=== PATIENT | female | born 1955 | race Caucasian/White ===

== ENCOUNTER 2017-05-22 09:38 | Inpatient (IN) | payer BC ==
--- NOTE | 2017-04-27 09:30 | History and Physical ---
History & Physical Date of Service Apr 27, 2017. History & Physical PROCEDURE: Right total knee replacement. HISTORY OF PRESENT ILLNESS: Patience is a mateusz 61-year-old female who presents for preoperative evaluation prior to a right knee replacement. She has been experiencing pain in this knee for several years now, which has gradually worsened. She describes the pain as aching, throbbing, which is aggravated by going up and down stairs, her normal daily activities including walking, standing. Her worst pain is a 9/10, at rest is a 2/10. She has taken oral anti-inflammatories including Celebrex and ibuprofen. She has also taken hydrocodone in the past for her pain. She has been treated with Synvisc series of injections x 2 without any relief. At this point in time, she has failed conservative measures and would like to proceed with a right knee replacement. She recently underwent left TKA and is doing well. PAST MEDICAL HISTORY: 1. Hypertension. 2. High cholesterol. 3. Osteoarthritis. ALLERGIES: CODEINE CAUSES VOMITING. SHE CAN NOT TAKE OXYCODONE BUT IS OK WITH NORCO. OXY MAKES HER VOMIT. CURRENT MEDICATIONS: 1. Lipitor 10 mg daily. 2. Valsartan 80mg daily. 2. Celebrex daily. 3. Aspirin 81 mg 2 tablets daily. PAST SURGICAL HISTORY: 1. Breast reduction. 2. Hernia repair. 3. Tonsillectomy. 4. Partial hysterectomy. 5. Left TKA 2014 FAMILY HISTORY: Noncontributory. SOCIAL HISTORY: The patient denies a history of smoking or tobacco use. She consumes 2-4 alcoholic beverages per week. REVIEW OF SYSTEMS: Otherwise negative. Please see HPI for pertinent positives. PHYSICAL EXAMINATION: GENERAL: Mateusz 61-year-old female in no acute distress, alert and oriented x 3. HEENT: Normocephalic, atraumatic. CARDIAC: Regular rate and rhythm. No murmurs or gallops appreciated. Resting pulse 78 beats per minute. LUNGS: Clear to auscultation without rales or wheeze bilaterally. ABDOMEN: Soft, nontender. Bowel sounds present. EXTREMITIES: Right lower extremity she is neurovascularly intact. Calf is soft and nontender. DP pulse +2. Good quad tone. Straight leg raise without lag. Overall has varus alignment. Positive crepitation with motion. Range of motion is 0/0/115. Her knee is ligamentously stable. Has diffuse tenderness to the knee, which is worse over the medial compartment. IMAGING: Reviewed of her right knee shows findings consistent with degenerative joint disease, including joint space narrowing and osteophyte formation. She has overall varus alignment. She has degenerative changes noted about the patellofemoral joint as well. IMPRESSION: 1. Right Knee DJD 2. Hypertension. 3. High cholesterol. PLAN: Further care discussed with the patient. At this point in time, has failed all conservative measures and would like to proceed with right knee replacement at [facility] [address]. Will be placed on aspirin 81 mg 1 tablet p.o. b.i.d. for 1 month postop. The patient otherwise has no other questions or concerns.
[2017-04-27 11:51] VITALS: BMI 31.0
[2017-04-27 11:59] LABS: BASO % 0.7 %; BASO ABS # 0.05 K/uL (0-0.2); COMPLETE YES; EOS % 4.5 %; HEMATOCRIT 43.4 % (37-47); IG% 0.3 %; LYMPH % 17.8 %; LYMPH ABS # 1.34 K/uL (1.2-3.4); MEAN CELL VOLUME 92.1 fL (80-100); MEAN CORPUSCULAR HEMOGLOBIN 30.4 pg (25-34); MEAN CORPUSCULAR HGB CONC 32.9 g/dl (32-36); MEAN PLATELET VOLUME 10.7 fL (7.4-10.4); MONO % 6.9 %; NEUT % 69.8 %; PLATELET COUNT 205 K/uL (130-400); RED BLOOD COUNT 4.71 M/uL (4.2-5.4); WHITE BLOOD COUNT 7.54 K/uL (4.8-10.8)
[2017-04-27 12:03] LABS: URINE APPEARANCE CLEAR (CLEAR); URINE BILIRUBIN NEG (NEG); URINE COLOR YELLOW; URINE NITRITE NEG (NEG); URINE PH 5.5 (4.5-7.5); URINE SPECIFIC GRAVITY 1.013 (1.000-1.030); UROBILINOGEN NEG (NEG)
[2017-04-27 12:09] LABS: PARTIAL THROMBOPLASTIN RATIO 1.1; PROTHROMBIN TIME (PATIENT) 10.6 SECONDS (9.0-12.0)
--- NOTE | 2017-04-27 12:13 | PAT Medication Instructions ---
Service Date Apr 27, 2017. Current Home Medication List Valsartan (Diovan), 80 MG PO QAM [Supplement], 1 DOSE PO PRN Medication Instructions For Your Scheduled Surgery - Hold the following medications 2 weeks prior to surgery: [Supplement], 1 DOSE PO PRN - Hold the following medications the morning of surgery: Valsartan (Diovan), 80 MG PO QAM Nothing to eat or drink after midnight If you have any questions please call us at [phone] or [phone] or [phone]
[2017-04-27 12:19] LABS: MANUAL MICROSCOPIC REQUIRED? NO; REVIEW REQ? NO
--- NOTE | 2017-04-27 12:34 | DIAGNOSTIC IMAGING REPORT ---
CHEST PREADMISSION(PA/LAT) CLINICAL HISTORY: Preoperative chest COMPARISON STUDY: No previous studies for comparison. FINDINGS: There is mild elevation right hemidiaphragm. There is no failure. There is no focal pulmonary consolidation. There are no pleural effusions. The heart is normal in size.[ IMPRESSION: Mild elevation/eventration right hemidiaphragm. Otherwise negative chest. Electronically signed by: Samy Tanner M.D. 04/27/2017 12:32 PM Dictated Date/Time: 04/27/2017 12:32 PM
[2017-04-27 12:37] LABS: ESTIMATED AVERAGE GLUCOSE 117 mg/dl; HA1C FLAG Normal (Normal)
[2017-04-27 12:43] LABS: BUN/CREATININE RATIO 12.8 (10-20); CALCIUM 8.9 mg/dl (8.5-10.1); CREATININE 0.83 mg/dl (0.60-1.20); POTASSIUM 4.5 mmol/L (3.5-5.1)
[2017-05-22] VITALS (7 sets, daily range): BP systolic 135–172; BP diastolic 79–98; PULSE 74–91; TEMP 36.4–36.9; O2SAT 91–98; Ht 170.2 cm; Wt 90.6 kg
[~2017-05-22] VITALS: Ht 170.2 cm; Wt 90.6 kg
[2017-05-22] MEDS: TRANEXAMIC ACID INJ 1,000 MG in SODIUM CHLORIDE 0.9% 100ML 100 ML IV SCH ×2 (06:30→11:19)
--- NOTE | 2017-05-22 08:21 | History & Physical Bridge Note ---
H&P Re-Evaluation Bridge Note: I have examined the patient, reviewed the History & Physical and in the interval since the performance of the History & Physical I have noted the following changes of clinical significance: No changes noted
[~2017-05-22 09:38] MED LIST: ACETAMINOPHEN 500 MG TAB PO SCH; BUPIVACAINE 0.25% 30 ML VIAL ONE; BUPIVACAINE 0.5 % 5 MG/1 ML PF 10ML VIAL ONE; CEFAZOLIN 2000 MG/60 ML D5W 60 ML IV SCH; CeleBREX 200 MG CAP PO SCH; DEXAMETHASONE 4 MG TAB PO SCH; DVN80 PO; FAMOTIDINE 20 MG TAB PO SCH; GABAPENTIN 300 MG CAP PO SCH; LACTATED RINGER'S 1000ML 1,000 ML IV SCH; LACTATED RINGER'S 1000ML 500 ML IV ONE; LACTATED RINGER'S 1000ML IV SCH; METOCLOPRAMIDE HCL 10 MG TAB PO SCH; ROPIVACAINE 5MG/ML 30 ML 150 MG, BUPIVACAINE/EPINEPHR 0.5% MPF 30 ML, KETOROLAC TROMETH... INFIL SCH; SUPPLEMENT PO; [UNRECOGNIZED DRUG - CODE]
[2017-05-22] MEDS ORDERED: FENTANYL CITRATE INJ 50 MCG/1 ML 2 ML VIAL ONE (10:24)
[2017-05-22] MEDS ORDERED: PROPOFOL IV EMULSION 10 MG/ML 20 ML VIAL IV ONE (10:24)
[2017-05-22] MEDS ORDERED: MIDAZOLAM HCL 1 MG/ML 2ML VIAL ONE ×3 (10:24→12:00)
[2017-05-22] MEDS ORDERED: SCOPOLAMINE 1.5 MG TDSY TD ONE ×2 (11:15)
[2017-05-22] MEDS ORDERED: PROMETHAZINE HCL INJ 12.5 MG in SODIUM CHLORIDE 0.9% 50ML 50 ML IV PRN (11:15)
[2017-05-22] MEDS ORDERED: ORTHO JOINT ANESTHETIC ONE (11:15)
[2017-05-22] MEDS ORDERED: ONDANSETRON INJ 2 MG/ML 2 ML VIAL IV PRN (11:15)
[2017-05-22] MEDS ORDERED: HYDROmorphone INJ 2 MG/ML SYR/VIAL IV PRN (11:15)
[2017-05-22] MEDS ORDERED: EpHEDrine SULFATE INJ 50 MG/ML AMP IV PRN (11:15)
[2017-05-22] MEDS ORDERED: PHENYLEPHRINE 100MCG/ML 5ML SYR IV PRN (11:15)
[2017-05-22] MEDS ORDERED: POVIDONE-IODINE OP SOLN 30 ML BTL ONE (11:15)
[2017-05-22] MEDS ORDERED: ATROPINE SULFATE 0.1 MG/ML 5ML SYR IV PRN (11:15)
[2017-05-22] MEDS ORDERED: KETOROLAC TROMETHAMINE 30 MG/ML VIAL IV. PRN ×2 (11:15→13:45)
[2017-05-22] MEDS ORDERED: BACITRACIN 50000 UNIT VIAL ONE (11:16)
--- NOTE | 2017-05-22 12:55 | [facility] Operative Report ---
Operative Report Operative Date May 22, 2017. Pre-Operative Diagnosis Right Knee Degenerative Joint Disease Post-Operative Diagnosis Same as preop Procedure(s) Performed Right Total Knee Arthroplasy [employer] journey to patient-matched total knee arthroplasty utilizing size 5 femur 3 tibia 11 poly-[address] [employer] Attendant Surgeon(s) Dylan Kelley PA-C Estimated Blood Loss 5 ml Findings Severe end-stage drug or medical degenerative joint disease right knee Specimens A. Right Knee Bone and Tissue Complication(s) None Disposition Recovery Room / PACU Indications Patient'has failed failed attempts at conservative management including injections anti-inflammatories relative rest activity modification and bracing presents for total knee arthroplasty Description of Procedure After proper prepping and draping of the Right lower extremity anterior midline incision was made over the region of the extensor extensor mechanism after meticulous hemostasis was obtained and maintained in subcutaneous tissues a medial parapatellar incision was made The patella was subluxed lateralward the medial lateral gutter were cleaned from any hypertrophic synovitis and scar tissue of the distal femoral block was placed and the distal femoral osteotomy cut was made subsequently the chamfers anterior and posterior osteotomy cuts were made utilizing the 4-in-1 block the tibia was subsequently subluxed anteriorward medial and ateral meniscal remnants were excised in their entirety remnants of the anterior and posterior cruciate ligaments were excised in their entirety excellent exposure of the proximal tibia was obtained the tibial osteotomy guide was placed on the proximal tibial osteotomy cut was made once again the knee was irrigated with copious amounts of sterile saline solution the patella was subsequently everted lateralward thickened scar tissue around the patella was removed the patella was subsequently cut utilizing a freehand technique and was drilled prepared for final preparation and placement of patella socially flexion-extension gaps were checked and the equal and symmetric trials were placed to the appropriate femoral and tibial trials with poly-spacer being placed for equal flexion and extension gaps and full range of motion including extension to 0 and flexion to 140 the trial components after having been taken to recovery range of motion was subsequently removed meticulous hemostasis was obtained and maintained subsequently a knee block injection of joint cocktail including ropivacaine 0.5% 150 mg. Bupivacaine 0.5 % epinephrine 1-200,030 mL's toradol 30 mg dexamethasone 4 mg ketamine 10 mg clonidine 100 micrograms normal saline solution 30 mg was infiltrated into the soft tissues of the posterior knee medial lateral gutters and periosteal synovium special attention was paid to protect neurovascular structures at all times subsequently trial components having been removed the knee was irrigated with sterile saline solution. debris was removed the proximal tibia was subsequently prepared and was made ready for the placement of the tibial component tibial component was also cemented and tamped into position the femoral component was subsequently placed and cemented in the position the patellar component was subsequently cemented in position because hemostasis once again obtained and maintained wound having been thoroughly irrigated with debridement and debridement lavage was performed as well as a medial parapatellar incision closed with #1 Vicryl in interrupted fashion subcutaneous was closed with #2 Vicryl skin was closed with skin clips. PA-C was necessary for prepping and drapping as well as wound closure of deep fascia Sub cutaneous tissue and skin and was necessary for the case. A sterile compressive dressing was placed patient was taken to recovery in stable condition of report dictated by Wojciech I attest to the content of the Intraoperative Record and any orders documented therein. Any exceptions are noted below. I attest to the content of the Intraoperative Record and any orders documented therein. Any exceptions are noted below.
[2017-05-22] MEDS ORDERED: MAGNESIUM HYDROXIDE SUSP 30 ML UDC PO PRN (13:45)
[2017-05-22] MEDS ORDERED: SOD PHOSPHATE/SOD BIPHOSPHATE ENEMA 132 ML BTL PR PRN (13:45)
[2017-05-22] MEDS ORDERED: ZOLPIDEM TARTRATE 5 MG TAB PO PRN (13:45)
[2017-05-22] MEDS ORDERED: TRAMADOL HCL 50 MG TAB PO PRN (13:45)
[2017-05-22] MEDS ORDERED: BISACODYL 10 MG SUPP PR PRN (13:45)
[2017-05-22] MEDS ORDERED: ALUMINUM/MAGNESIUM/SIMETH (MAALOX MAX) 30 ML UDC PO PRN (13:45)
[2017-05-22] MEDS ORDERED: MoRPHine SULFATE 2 MG/ML CARP IV PRN (13:45)
--- NOTE | 2017-05-22 14:00 | DIAGNOSTIC IMAGING REPORT ---
RIGHT KNEE 1 OR 2 VIEWS ROUTINE CLINICAL HISTORY: 61 years-old Female presenting with postoperative right knee arthroplasty. TECHNIQUE: Frontal and lateral views of the right knee were obtained. COMPARISON: None. FINDINGS: Postsurgical changes of total right knee arthroplasty with patellar resurfacing. Expected gas in the soft tissues. Surgical drains in place. No hardware competition. No acute fracture or malalignment. IMPRESSION: 1. Expected postoperative appearance of right total knee arthroplasty with patellar resurfacing. Electronically signed by: Fabian Jurado M.D. 05/22/2017 1:59 PM Dictated Date/Time: 05/22/2017 1:58 PM
--- NOTE | 2017-05-22 14:04 | Anesthesiology Progress Note ---
Anesthesia Post Op Note Date & Time May 22, 2017 at 14:04 Vital Signs Pain Intensity: 0 Vital Signs Past 12 Hours Date Time Temp Pulse Resp B/P (MAP) Pulse Ox O2 Delivery O2 Flow Rate FiO2 05/22/17 13:56 133/84 05/22/17 13:52 83 16 05/22/17 13:52 82 16 98 05/22/17 13:51 146/76 05/22/17 13:47 80 14 05/22/17 13:47 79 14 129/87 99 05/22/17 13:42 80 17 05/22/17 13:42 79 17 100 05/22/17 13:41 127/84 05/22/17 13:40 78 13 05/22/17 13:40 75 13 100 05/22/17 13:36 129/82 05/22/17 13:35 81 16 05/22/17 13:35 83 16 100 05/22/17 13:31 139/72 05/22/17 13:30 88 14 05/22/17 13:30 88 14 99 05/22/17 13:30 37.2 73 14 139/72 100 Mask 10 05/22/17 10:31 36.7 79 20 172/98 97 Room Air Notes Mental Status: alert / awake / arousable, participated in evaluation Pt Amnestic to Procedure: Yes Nausea / Vomiting: adequately controlled Pain: adequately controlled Airway Patency, RR, SpO2: stable & adequate BP & HR: stable & adequate Hydration State: stable & adequate Anesthetic Complications: no major complications apparent
[2017-05-22] MEDS ORDERED: MoRPHine SULFATE 10 MG/ML CARP/VIAL IV PRN (16:15)
[2017-05-22] MEDS ORDERED: MoRPHine SULFATE 4 MG/ML 1 ML CARP\\VIAL IV PRN (16:15)
[2017-05-22] MEDS: D5W AND 1/2NSS + 20MEQ KCL 1,000 ML IV SCH (16:28)
[2017-05-22] MEDS: HYDROCODONE/ACETAMI 10/325 TAB PO PRN (16:28)
[2017-05-22] MEDS: CEFAZOLIN IV 2,000 MG in DEXTROSE 5% 50ML 50 ML IV SCH (20:47)
[2017-05-22] MEDS: ASPIRIN 81 MG ECTAB PO SCH (20:50)
[2017-05-22] MEDS: DOCUSATE SODIUM 100 MG CAP PO SCH (20:51)
[2017-05-22] MEDS: SENNA 8.6 MG TAB PO SCH (20:51)
[2017-05-22] MEDS: ONDANSETRON INJ 2 MG/ML 2 ML VIAL IV PRN (20:56)
[2017-05-23] VITALS (7 sets, daily range): BP systolic 114–128; BP diastolic 62–86; PULSE 68–86; TEMP 36.4–37.2; O2SAT 91–98
[2017-05-23] MEDS: HYDROCODONE/ACETAMI 10/325 TAB PO PRN ×4 (00:11→23:53)
[2017-05-23] MEDS: CEFAZOLIN IV 2,000 MG in DEXTROSE 5% 50ML 50 ML IV SCH (03:08)
[2017-05-23] MEDS: D5W AND 1/2NSS + 20MEQ KCL 1,000 ML IV SCH ×2 (03:08→13:31)
[2017-05-23 06:48] LABS: HEMATOCRIT 32.3 % (37-47); MEAN CELL VOLUME 89.7 fL (80-100); MEAN CORPUSCULAR HEMOGLOBIN 29.7 pg (25-34); MEAN CORPUSCULAR HGB CONC 33.1 g/dl (32-36); MEAN PLATELET VOLUME 9.9 fL (7.4-10.4); PLATELET COUNT 216 K/uL (130-400); WHITE BLOOD COUNT 15.77 K/uL (4.8-10.8)
[2017-05-23 06:52] LABS: INR 1.1 (0.9-1.1); PROTHROMBIN TIME (PATIENT) 11.4 SECONDS (9.0-12.0)
[2017-05-23 07:23] LABS: BUN/CREATININE RATIO 13.6 (10-20); CALCIUM 8.5 mg/dl (8.5-10.1); CREATININE 0.92 mg/dl (0.60-1.20); POTASSIUM 4.4 mmol/L (3.5-5.1)
--- NOTE | 2017-05-23 08:00 | Anesthesiology Progress Note ---
Anesthesia Post Op Note Date & Time May 23, 2017 at 08:00 Vital Signs Pain Intensity: 6.0 Vital Signs Past 12 Hours Date Time Temp Pulse Resp B/P (MAP) Pulse Ox O2 Delivery O2 Flow Rate FiO2 05/23/17 03:58 37.2 76 15 126/73 (90) 94 Room Air 05/23/17 00:07 37.0 79 15 120/71 (87) 95 Room Air 05/22/17 23:15 Room Air Notes Mental Status: alert / awake / arousable, participated in evaluation Pt Amnestic to Procedure: Yes Nausea / Vomiting: adequately controlled Pain: adequately controlled Airway Patency, RR, SpO2: stable & adequate BP & HR: stable & adequate Hydration State: stable & adequate Anesthetic Complications: no major complications apparent
[2017-05-23] MEDS: ASPIRIN 81 MG ECTAB PO SCH ×2 (08:56→20:46)
[2017-05-23] MEDS: PANTOprazole SOD 40 MG TAB PO SCH (08:56)
[2017-05-23] MEDS: VALSARTAN 80 MG TAB PO SCH (08:56)
[2017-05-23] MEDS: DOCUSATE SODIUM 100 MG CAP PO SCH ×2 (08:56→20:46)
[2017-05-23] MEDS: MULTIVITAMIN TAB PO SCH (08:57)
--- NOTE | 2017-05-23 09:26 | Orthopedic Progress Note ---
Orthopedic Progress Note Date of Service May 23, 2017. Subjective Post OP Day: 1 (s/p Right TKA) Reports: feeling well, pain controlled w PO medications, Denies: complaints, chest pain, SOB, nausea / vomiting, light headedness, calf pain Objective calves soft nontender, N/V intact, capillary refill less than 2 sec., dressing C /D/I, A&O x3, toes mobile, hemovac drainage (125cc/ 8 hours) Date Time Temp Pulse Resp B/P (MAP) Pulse Ox O2 Delivery O2 Flow Rate FiO2 05/23/17 08:36 96 05/23/17 08:14 36.4 78 12 128/78 (95) 96 Room Air 05/23/17 03:58 37.2 76 15 126/73 (90) 94 Room Air 05/23/17 00:07 37.0 79 15 120/71 (87) 95 Room Air 05/22/17 23:15 Room Air 05/22/17 19:38 36.4 85 18 143/81 (101) 95 Room Air 05/22/17 17:33 36.5 74 18 144/80 (101) 95 Room Air 05/22/17 16:25 36.5 83 16 151/82 (105) 93 Room Air 05/22/17 15:45 Nasal Cannula 2.0 05/22/17 15:35 36.5 78 18 146/83 (104) 97 Nasal Cannula 2.0 05/22/17 14:55 36.9 91 17 147/87 (107) 91 Room Air 05/22/17 14:25 36.4 86 18 135/79 (97) 98 Nasal Cannula 2.0 05/22/17 14:25 98 Nasal Cannula 2.0 05/22/17 14:12 36.6 05/22/17 14:07 78 15 05/22/17 14:07 79 15 95 05/22/17 14:06 134/87 05/22/17 14:02 77 13 05/22/17 14:02 77 13 98 05/22/17 14:01 116/79 05/22/17 13:57 80 21 05/22/17 13:57 80 21 97 05/22/17 13:56 133/84 05/22/17 13:52 83 16 05/22/17 13:52 82 16 98 05/22/17 13:51 146/76 05/22/17 13:47 80 14 05/22/17 13:47 79 14 129/87 99 05/22/17 13:42 80 17 05/22/17 13:42 79 17 100 05/22/17 13:41 127/84 05/22/17 13:40 78 13 05/22/17 13:40 75 13 100 05/22/17 13:36 129/82 05/22/17 13:35 81 16 05/22/17 13:35 83 16 100 05/22/17 13:31 139/72 05/22/17 13:30 88 14 05/22/17 13:30 88 14 99 05/22/17 13:30 37.2 73 14 139/72 100 Mask 10 05/22/17 10:31 36.7 79 20 172/98 97 Room Air Laboratory Results 24 Hours: Test 05/23/17 06:14 Hematocrit 32.3 % Hemoglobin 10.7 g/dL Prothromb Time International Ratio 1.1 Prothrombin Time 11.4 SECONDS Assessment & Plan Assessment: POD #1 s/p Right TKA -pt/ot -dvt proph with kehinde/scd/asa -plan for d/c home with OPPT when stable -pain currently controlled with norco and ultram, will avoid oxy which causes severe nausea 1. Hypertension. 2. High cholesterol. 3. Osteoarthritis. Discharge Planning DVT Prophylaxis: TEDs, SCDs, ASA Therapy: Physical Therapy
--- NOTE | 2017-05-23 17:04 | Discharge Instructions ---
Discharge Instructions Date of Service May 23, 2017. Admission Reason for Admission: Right Knee Osteoarthritis Discharge Discharge Diagnosis / Problem: Right Total Knee Replacement Discharge Goals Goal(s): Decrease discomfort, Improve function, Increase independence Activity Recommendations Activity Limitations: as noted below Weightbearing Status: Right weightbearing (as tolerated) . Instructions / Follow-Up Instructions / Follow-Up ACTIVITY RECOMMENDATIONS: SELF CARE INSTRUCTIONS AFTER TOTAL KNEE REPLACEMENT A. You may need to continue a physical therapy program after discharge from the hospital. There are several options available to you. Your doctor will assist you in selecting the best one for you. 1. An out-patient facility 2 to 3 times a week for therapy or home therapy. 2. Continue working on all exercises taught to you in the hospital. Your goals should be to increase bending of your knee to 90 degrees and beyond and to fully straighten your knee. B. You may progress at your own pace from walking with a walker or crutches to a cane; then to no assistive devices. C. Make walking a part of your daily routine. Be up as much as comfortable with rest periods throughout the day. Rest with leg elevation is very important. Use the ice wrap frequently for the first 3-4 weeks. D. There are no restrictions on activities. You may ride in a car, shop, participate in pan devulcanizer and all social activities. E. Wear the long elastic stockings (CLARICE hose) 20 hours a day for 2 weeks after surgery. They can be removed several times a day for laundering and for a bath. F. You may shower, no tub baths until cleared by your doctor. SPECIAL CARE INSTRUCTIONS: VERY IMPORTANT TO READ AND REVIEW A. There are a few signs you need to watch for after you are home. Call [facility] if you notice any of the followin. Increased severe knee pain. Some pain is expected especially when you exercise. 2. Increased swelling in your leg or knee; pain or swelling of the calf muscle in either lower leg. 3. Any fluid drainage from the incision. 4. Shortness of breath or chest pain. B. Please call [facility] at if you have any concerns or questions about your operation or recovery. The doctor or his nurse will return your call promptly. C. You must take antibiotics before dental work, bladder, bowel or other surgery. Your doctor will provide you with a permanent care to carry describing this precaution. IMPORTANT: * REMEMBER TO TAKE ASPIRIN, 81 MG, TWICE DAILY FOR 4 WEEKS UNLESS OTHERWISE DIRECTED. THIS IS YOUR BLOOD THINNER. * HIGH RISK PATIENTS MAY BE PRESCRIBED A STRONGER BLOOD THINNER. THIS WILL BE PROVIDED AT DISCHARGE. * CALL IF INCREASED PAIN, REDNESS, DRAINAGE OR FEVER GREATER THAT 101. * WEAR CLARICE HOSE 20 HOURS PER DAY FOR 2 WEEKS. * YOU MAY HAVE A LARGE BAND-AID LIKE DRESSING (SILVERON). THIS WILL REMAIN ON YOUR INCISION FOR 7 DAYS, THEN CAN BE REMOVED. IF INCISION IS LEAKING THROUGH DRESSING, CALL THE OFFICE . DERMABOND Prineo- This is a mesh tape dressing that is covered with glue. It should remain in place until the incision is properly healed, usually 10-14 days. This dressing is designed to naturally slough off. You may trim the excess mesh tape as it peels off. Incision may be briefly wet in a shower. Dry immediately by blotting with a clean, dry towel. Do not bath or swim until instructed by your doctor. Do not scratch, rub, or pick at the dressing. Do not apply any topical ointments or lotions until dressing is completely removed and/or instructed by your doctor. There may be a small piece of suture material at one end of your incision. Do not pull or trim this. If it is bothersome or catching on clothing, you may cover it with a band-aid. FOLLOW UP VISIT: If appointment is not already scheduled: Please call [facility] to make a follow-up appointment for 2 weeks after your surgery at . Current Hospital Diet Patient's current hospital diet: Regular Diet Discharge Diet Recommended Diet: Regular Diet Procedures Procedures Performed: Right Total Knee Arthroplasy [facility] journey to patient-matched total knee arthroplasty utilizing size 5 femur 3 tibia 11 poly-32 oval patella Pending Studies Studies pending at discharge: no Laboratory Results Hemoglobin A1c Test 04/27/17 11:32 Range/Units Estimated Average Glucose 117 mg/dl Hemoglobin A1c 5.7 H 4.5-5.6 % Medical Emergencies . Who to Call and When: Medical Emergencies: If at any time you feel your situation is an emergency, please call 911 immediately. . Non-Emergent Contact Non-Emergency issues call your: Primary Care Provider, Surgeon . "Provider Documentation" section prepared by Dylan Kelley. . VTE Core Measure Inpt VTE Proph given/why not?: Other Anticoagulation (ASA 81mg po bid x 1 month ), T.E.DBryan Stockings, SCD's [place] Drug Monitoring Program Search Results: patient reviewed within database, no issues identified
[2017-05-23] MEDS: CeleBREX 200 MG CAP PO SCH (20:46)
[2017-05-23] MEDS: SENNA 8.6 MG TAB PO SCH (21:17)
[2017-05-23] MEDS: ONDANSETRON INJ 2 MG/ML 2 ML VIAL IV PRN (21:18)
[2017-05-24 05:53] VITALS: BP 128/73; PULSE 78; TEMP 36.9; O2SAT 97
--- NOTE | 2017-05-24 07:32 | Orthopedic Progress Note ---
Orthopedic Progress Note Date of Service May 24, 2017. Subjective Post OP Day: 2 Reports: feeling well, Denies: chest pain, SOB, nausea / vomiting, light headedness, calf pain Additional Notes: some pain in the knee but not too bad. Objective calves soft nontender, N/V intact, incision C/D/I, A&O x3, toes mobile Date Time Temp Pulse Resp B/P (MAP) Pulse Ox O2 Delivery O2 Flow Rate FiO2 05/24/17 05:53 36.9 78 16 128/73 (91) 97 Room Air 05/23/17 23:15 Room Air 05/23/17 22:57 36.9 86 18 121/74 (90) 94 Room Air 05/23/17 15:20 Room Air 05/23/17 15:07 36.6 85 18 114/62 (79) 91 Room Air 05/23/17 12:25 36.6 68 12 128/86 (100) 98 Room Air 05/23/17 11:48 Room Air 05/23/17 08:36 96 05/23/17 08:14 36.4 78 12 128/78 (95) 96 Room Air Assessment & Plan Assessment: POD #2 s/p Right TKA -pt/ot -dvt proph with kehinde/scd/asa -plan for d/c home with OPPT when stable -pain currently controlled with norco and ultram, will avoid oxy which causes severe nausea PLAN FOR DC TO HOME TODAY 1. Hypertension. 2. High cholesterol. 3. Osteoarthritis. Inhouse Planning Pain Management: Ultram, Cherry Plain, Morphine DVT Prophylaxis: TEDs, SCDs, ASA Discharge Planning Discharge Planning: home with oppt Pain Management: Ultram, Cherry Plain DVT Prophylaxis: TEDs, ASA Therapy: Physical Therapy
[2017-05-24] MEDS: CeleBREX 200 MG CAP PO SCH (07:33)
[2017-05-24] MEDS: PANTOprazole SOD 40 MG TAB PO SCH (07:34)
[2017-05-24] MEDS ORDERED: ONDA8TAB6 PO (07:35)
[2017-05-24] MEDS ORDERED: HYDR-4079 PO (07:35)
[2017-05-24] MEDS: MULTIVITAMIN TAB PO SCH (07:35)
[2017-05-24] MEDS: VALSARTAN 80 MG TAB PO SCH (07:35)
[2017-05-24] MEDS ORDERED: ULT50X PO (07:35)
[2017-05-24] MEDS ORDERED: SNK PO (07:35)
[2017-05-24] MEDS ORDERED: ASPEC81 PO (07:35)
[2017-05-24] MEDS: HYDROCODONE/ACETAMI 10/325 TAB PO PRN ×2 (07:40→13:39)
[2017-05-24] MEDS: ASPIRIN 81 MG ECTAB PO SCH (09:20)
[2017-05-24] MEDS: DOCUSATE SODIUM 100 MG CAP PO SCH (09:20)
[2017-05-24 11:27] VITALS: BP 128/73; PULSE 78; TEMP 36.9; O2SAT 97
--- NOTE | 2017-05-24 19:14 | Discharge Summary ---
Orthopedic Discharge Summary Admission Date/Reason May 22, 2017 at 13:38 Right Knee Osteoarthritis. Discharge Date/Disposition May 24, 2017 Home Diagnosis Principal Diagnosis: Right Knee Osteoarthritis Procedure(s) Performed Right Total Knee Arthroplasy Jasvir naidu journey to patient-matched total knee arthroplasty utilizing size 5 femur 3 tibia 11 poly-32 oval patella Consultations NONE Medication Reconciliation New Medications: Ondansetron Hcl (Zofran) 8 Mg Tab 8 MG PO TID PRN for Nausea, #20 TAB Aspirin (Aspirin EC Low Dose) 81 Mg Ectab 81 MG PO BID for 30 Days Hydrocodone/Acetaminophen 10MG/325MG ([place] 10MG/325MG) Tab 1-2 TAB PO Q6HWA PRN for Pain, #60 TAB PRN PAIN Senna (Senna Lax) 8.6 Mg Tab 17.2 MG PO HS, #30 TAB Tramadol HCl (Tramadol HCl) 50 Mg Tab 50-100 MG PO Q4H PRN for Pain, #60 TAB Continued Medications: Coenzyme Q10 (Ubidecarenone) (Co-Enzyme Q 10) Unknown Strength Cap Unknown Dose Valsartan (Diovan) 80 Mg Tab 80 MG PO QAM, TAB Admission Physical Exam As per Admitting History & Physical. Hospital Course Patient was a same day admission after undergoing a successful right TKA. she tolerated the procedure well. Post-operatively, her activity was progressed and well tolerated. Please refer to daily progress notes and PT notes for complete details. After exam on 05/24/17, patient felt to be stable for discharge home with OPPT. Patient will f/u in the office in 2 weeks for further evaluation including x-rays and incision check, sooner if having any issues or concerns. Below are pertinent labs/studies during their hospital stay: Discharge Instructions ACTIVITY RECOMMENDATIONS: SELF CARE INSTRUCTIONS AFTER TOTAL KNEE REPLACEMENT A. You may need to continue a physical therapy program after discharge from the hospital. There are several options available to you. Your doctor will assist you in selecting the best one for you. 1. An out-patient facility 2 to 3 times a week for therapy or home therapy. 2. Continue working on all exercises taught to you in the hospital. Your goals should be to increase bending of your knee to 90 degrees and beyond and to fully straighten your knee. B. You may progress at your own pace from walking with a walker or crutches to a cane; then to no assistive devices. C. Make walking a part of your daily routine. Be up as much as comfortable with rest periods throughout the day. Rest with leg elevation is very important. Use the ice wrap frequently for the first 3-4 weeks. D. There are no restrictions on activities. You may ride in a car, shop, participate in roof cement and paint maker and all social activities. E. Wear the long elastic stockings (CLARICE hose) 20 hours a day for 2 weeks after surgery. They can be removed several times a day for laundering and for a bath. F. You may shower, no tub baths until cleared by your doctor. SPECIAL CARE INSTRUCTIONS: VERY IMPORTANT TO READ AND REVIEW A. There are a few signs you need to watch for after you are home. Call [facility] if you notice any of the followin. Increased severe knee pain. Some pain is expected especially when you exercise. 2. Increased swelling in your leg or knee; pain or swelling of the calf muscle in either lower leg. 3. Any fluid drainage from the incision. 4. Shortness of breath or chest pain. B. Please call [facility] at if you have any concerns or questions about your operation or recovery. The doctor or his nurse will return your call promptly. C. You must take antibiotics before dental work, bladder, bowel or other surgery. Your doctor will provide you with a permanent care to carry describing this precaution. IMPORTANT: * REMEMBER TO TAKE ASPIRIN, 81 MG, TWICE DAILY FOR 4 WEEKS UNLESS OTHERWISE DIRECTED. THIS IS YOUR BLOOD THINNER. * HIGH RISK PATIENTS MAY BE PRESCRIBED A STRONGER BLOOD THINNER. THIS WILL BE PROVIDED AT DISCHARGE. * CALL IF INCREASED PAIN, REDNESS, DRAINAGE OR FEVER GREATER THAT 101. * WEAR CLARICE HOSE 20 HOURS PER DAY FOR 2 WEEKS. * DERMABOND Prineo- This is a mesh tape dressing that is covered with glue. It should remain in place until the incision is properly healed, usually 10-14 days. This dressing is designed to naturally slough off. You may trim the excess mesh tape as it peels off. Incision may be briefly wet in a shower. Dry immediately by blotting with a clean, dry towel. Do not bath or swim until instructed by your doctor. Do not scratch, rub, or pick at the dressing. Do not apply any topical ointments or lotions until dressing is completely removed and/or instructed by your doctor. There may be a small piece of suture material at one end of your incision. Do not pull or trim this. If it is bothersome or catching on clothing, you may cover it with a band-aid. FOLLOW UP VISIT: If appointment is not already scheduled: Please call [facility] to make a follow-up appointment for 2 weeks after your surgery at .
== END 2017-05-24 13:59 | disposition home or self-care (01) | DRG 470 ==
LOC: C.ACU 09:38 → C.3E 13:38 → ENRESERV 14:01
PROVIDERS: ADMIT Orthopaedic Surgery; ATTEND Orthopaedic Surgery
PROC: 0SRC0J9 Replacement of Right Knee Joint with Synthetic Substitute, Cemented, Open Approach (ICD-10-PCS; principal; 2017-05-22 11:30)
DX: M17.11 Unilateral primary osteoarthritis, right knee (principal); I10 Essential (primary) hypertension; E78.00 Pure hypercholesterolemia, unspecified; Z79.899 Other long term (current) drug therapy; Z79.82 Long term (current) use of aspirin; Z96.652 Presence of left artificial knee joint